=== PATIENT | female | born 1950 | race Caucasian/White ===

== ENCOUNTER 2018-01-12 05:43 | Day surgery (SDC) | payer MEDICARE ==
[~2018-01-12] VITALS: Ht 162.6 cm; Wt 71.8 kg
[2018-01-12] MEDS ORDERED: BENZOCAINE 20% 50 MCG/SPRAY 57 GM TP ONE (05:44)
[2018-01-12] MEDS ORDERED: LIDOCAINE HCL 4% 50 ML SOLUTION TP ONE (05:44)
[2018-01-12] MEDS ORDERED: LIDOCAINE HCL 2% 30 ML JELLY TP ONE (05:44)
[2018-01-12] MEDS ORDERED: ALBUTEROL SULFATE 2.5 MG/0.5 ML NEB SOLUTION NEB ONE (05:44)
[2018-01-12] MEDS ORDERED: SODIUM CHLORIDE 0.9% 1,000 ML IV ONE ×2 (06:00→06:52)
[2018-01-12] MEDS ORDERED: ASPI-556 PO (07:35)
[2018-01-12] MEDS ORDERED: CALC-1038 PO (07:35)
[2018-01-12] MEDS ORDERED: SIMV-260 PO (07:35)
[2018-01-12] MEDS ORDERED: HYDR200T4 PO (07:35)
[2018-01-12] MEDS ORDERED: MONT10TA21 PO (07:35)
[2018-01-12] MEDS ORDERED: MYCO250C36 PO (07:35)
[2018-01-12] MEDS ORDERED: LEVO88TA4 PO (07:35)
[2018-01-12] MEDS ORDERED: LOSA1TAB42 PO (07:35)
[2018-01-12] MEDS ORDERED: FentaNYL CITRATE-PF 100 MCG/2 ML VIAL ONE (08:00)
[2018-01-12] MEDS ORDERED: MIDAZOLAM HCL 2 MG/2 ML VIAL ONE (08:00)
[2018-01-12] MEDS ORDERED: MethylPREDNISolone SOD SUCC 125 MG/2 ML VIAL IVP ONE (08:45)
[2018-01-12] MEDS ORDERED: MethylPREDNISolone SOD SUCC 125 MG/2 ML VIAL ONE (09:17)
[2018-01-12] MEDS ORDERED: OXYGEN THERAPY IH SCH (20:00)
== END 2018-01-12 09:50 | disposition home or self-care (01) ==
LOC: SURGERY 05:43
PROVIDERS: ATTEND Internal Medicine Critical Care Medicine
DX: J38.4 Edema of larynx (principal); B37.0 Candidal stomatitis; I10 Essential (primary) hypertension; M19.90 Unspecified osteoarthritis, unspecified site; E78.00 Pure hypercholesterolemia, unspecified; J84.111 Idiopathic interstitial pneumonia, not otherwise specified; J98.09 Other diseases of bronchus, not elsewhere classified; Z79.82 Long term (current) use of aspirin; Z87.891 Personal history of nicotine dependence; Z98.51 Tubal ligation status; Z90.89 Acquired absence of other organs; Z90.49 Acquired absence of other specified parts of digestive tract; Z98.41 Cataract extraction status, right eye; Z98.42 Cataract extraction status, left eye; Z87.01 Personal history of pneumonia (recurrent); Z79.899 Other long term (current) drug therapy
CPT/HCPCS: 31623; 31624; 71045; 87015; 87070; 87205; 87206; 87220; 88108; 88313; J2250; J2930; J3010; J7030